=== PATIENT | male | born 1995 | race Hispanic/Latino ===

== ENCOUNTER 2018-09-30 13:03 | Emergency (ER) | payer OTHER, SELFPAY ==
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
[2018-09-30 13:08] VITALS: BP 143/87; PULSE 90; RESP 14; TEMP 36.6; O2SAT 100; BMI 25.8
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
[2018-09-30] MEDS: CYCLOBENZAPRINE 10 MG TABLET PO (15:39)
[2018-09-30] MEDS: IBUPROFEN 400 MG TABLET 800 MG PO (15:39)
[2018-09-30 16:44] VITALS: BP 122/72; PULSE 78; RESP 14; O2SAT 100
== END 2018-09-30 16:47 | disposition home or self-care (01) ==
PROVIDERS: Emergency Provider Internal Medicine
DX: S19.9XXA Unspecified injury of neck, initial encounter (principal); V48.5XXA Car driver injured in noncollision transport accident in traffic accident, initial encounter
CPT/HCPCS: 72040; 72070; 72100; 99283